=== PATIENT | female | born 1940 | race African-American/Black ===

== ENCOUNTER 2019-07-05 20:33 | Emergency (ER) | payer MEDICARE, SELFPAY ==
--- NOTE | ~2019-07-05 | XR_ITS ---
EXAMINATION: XR chest 2V DATE: 07/05/2019 21:42 INDICATION: Shortness of breath, hypertension TECHNIQUE: PA and lateral views of the chest are obtained. COMPARISON: None available FINDINGS: The lungs are free of acute opacities. There is no pleural effusion or pneumothorax. The ca rdiomediastinal silhouette is normal. There is moderate thoracic spondylosis. IMPRESSION: 1. No acute cardiopulmonary abnormality. Reviewed, dictated and finalized at location A. 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
[2019-07-05 20:38] VITALS: BP 198/73; PULSE 81; RESP 20; TEMP 36.2; O2SAT 100
--- NOTE | 2019-07-05 20:54 | ED.SOB ---
HPI - SOB/Dyspnea General Chief Complaint: Shortness of Breath/Dyspnea Stated Complaint: SOB Time Seen by Provider: 07/05/19 20:54 Source: patient Mode of arrival: ambulatory Limitations: no limitations History of Present Illness HPI Narrative: An 78 y/o female presents to the ED with c/o SOB this evening. Pt states that she went out to dinner with friends but did not do any activity out of the ordinary. Pt notes that her BLE edema is worse than normal today. Pt is on medication for her PMHx of HTN but has not taken this yet today because she only takes it before she goes to bed. Pt lives alone at home and is able to ambulate unassisted. She reports lightheadedness, but denies a cough, CP, chest pressure, rhinorrhea, sore throat, dizziness, a fever, smoking, and alcohol use. Onset (ago): hour(s) Review of Systems Review of Systems: All systems reviewed & are unremarkable except as noted in HPI and below Constitutional: Constitutional: Denies fever(s) Comments: Reports: lightheadedness ENT: Denies sore throat Comments: Denies: rhinorrhea Cardiovascular: Cardiovascular: Denies chest pain Comments: Denies: chest pressure Respiratory: Respiratory: Denies cough and Reports dyspnea Musculoskeletal: Comments: Reports: increased BLE edema Neurologic: Denies dizziness PMFSH Past Medical History Medical History (Updated 07/05/19 @ 23:58 by Juju Rodriges MD) HTN (hypertension) Surgical History Surgical History (Updated 07/05/19 @ 21:03 by Yesneia Wen) H/O: hysterectomy Social History Social History (Updated 07/05/19 @ 21:10 by Yesenia Wen) Smoking status: Never smoker Alcohol intake: never Gender identity (if verbalized by the patient): Female Comments PCP: Dr. Solis Exam Narrative: Exam Narrative: GENERAL: Well-appearing, well-nourished, and in no acute distress. HEAD: Normocephalic, atraumatic EYES: PERRLA and EOMI, conjunctiva clear without discharge THROAT:Mucous membranes moist, Oropharynx normal without erythema, exudate, peritonsillar swelling or fluctuance NECK: Supple, without lymphadenopathy or mass RESPIRATORY: No respiratory distress, Airway patent, Respirations non-labored, Clear to auscultation without rales, rhonchi or wheeze HEART: Regular rate and rhythm. No murmur heard. Normal peripheral pulses. ABDOMEN: Soft, nontender, nondistended, normal active bowel sounds. No masses. No rebound or guarding, No organomegaly. EXTREMITIES: No edema, normal strength with full range of motion. SKIN: Warm, dry, normal color without rash NEURO: Alert and oriented x3. CN 2-12 grossly intact. No focal deficits. PSYCH: Normal mood and affect. Course Reevaluation(s) Reevaluation #1: PAtient ambulated with nursing staff. She maintained 98% on room air and she denies having any shortness of breath. Date: 07/05/19 Time: 23:56 Vital Signs Vital signs: Vital Signs Temperature 97.1 F L 07/05/19 20:38 Pulse Rate 81 07/05/19 20:38 Respiratory Rate 20 07/05/19 20:38 Blood Pressure 198/73 H 07/05/19 20:38 Pulse Oximetry 100 07/05/19 20:38 Temperature 97.1 F L 07/05/19 20:38 Pulse Rate 61 07/05/19 23:31 Respiratory Rate 14 07/05/19 23:31 Blood Pressure 165/80 H 07/05/19 23:31 Pulse Oximetry 100 07/05/19 23:31 MDM - SOB/Dyspnea Differential Diagnosis Differential diagnosis: Likely acute exacerbation of chronic obstructive airways disease, congestive heart failure, community acquired pneumonia, asthma with exacerbation and pulmonary embolism Lab Data Attestation: I reviewed the patient's lab results. Result diagrams: 07/05/19 22:11 07/05/19 22:11 Labs: Lab Results 07/05/19 07/05/19 07/05/19 Range/Units 22:11 22:11 22:11 WBC 6.3 (4.5-10.0) K/mm3 RBC 4.39 (4.2-5.4) M/mm3 Hgb 11.9 L (12.0-15.0) g/dL Hct 39.7 (37.0-47.0) % MCV 90.4 (80-100) fl MCH 27.1 (26-34) pg MCHC 30.0 L (32-36) g/dl RD
--- NOTE | 2019-07-05 20:55 | PC.NURSE ---
pt denies having any hx of copd, chf. pt states she has had a recent nonproductive cough. denies any congestion.
[2019-07-05 20:59] VITALS: BP 163/80; PULSE 70; RESP 16; O2SAT 100
--- NOTE | 2019-07-05 21:19 | ECG_ITS ---
Measurements Intervals [place] Rate: 75 P: 11 [place]: 164 QRS: -11 QRSD: 90 T: 4 QT: 387 QTc: 434 Interpretive Statements SINUS RHYTHM VOLTAGE CRITERIA FOR LVH CONSIDER INFERIOR INFARCT, AGE INDETERMINATE ABNORMAL ECG Electronically Signed On 07-06-2019 8:22:22 BENCH HAND by Tree Little D.O.
--- NOTE | 2019-07-05 21:35 | PC.NURSE ---
unable to get blood from pt at this time. pt going to xray. this rn will attempt again when she returns. notifed.
[2019-07-05 22:17] LABS: Basophils Percent Auto 0.5 % (0.2-1.2); Eosinophils Absolute Auto 0.1 K/mm3 (0-0.3); Eosinophils Percent Auto 2.2 % (0-4.4); Hematocrit 39.7 % (37.0-47.0); Hemoglobin 11.9 g/dL (12.0-15.0); Immature Granulocyte Absolute 0.02 K/mm3 (0.00-0.031); Immature Granulocyte Percent A 0.3 % (0-0.5); Lymphocytes Absolute Auto 2.65 K/mm3 (0.9-3.2); Lymphocytes Percent Auto 41.8 % (18.3-44.2); Mean Corpuscular Hemoglobin 27.1 pg (26-34); Mean Corpuscular Volume 90.4 fl (80-100); Mean Platelet Volume 10.1 fl (7.4-10.4); Monocytes Absolute Auto 0.5 K/mm3 (0.1-0.6); Monocytes Percent Auto 7.6 % (2.6-8.5); Neutrophils Percent Auto 47.6 % (45.5-73.1); Platelet Count Result 204 k/mm3 (150-375); Red Blood Count 4.39 M/mm3 (4.2-5.4); Red Cell Distribution Width 13.4 % (11.5-14.5); White Blood Count 6.3 K/mm3 (4.5-10.0)
[2019-07-05 22:20] VITALS: BP 155/111; PULSE 77; RESP 16; O2SAT 99
[2019-07-05 22:27] LABS: Prothrombin Time 12.8 Seconds (11.1-14.7)
[2019-07-05 22:28] LABS: Blood Urea Nitrogen 21 mg/dL (7-17); Calcium 8.7 mg/dL (8.4-10.2); Carbon Dioxide 23 mmol/L (22-30); Chloride 102 mmol/L (98-107); Estimated Glomerular Filt Rate 58; Glucose 107 mg/dL (65-105); Partial Thromboplastin Time 31.2 SECONDS (22.3-36.8); Potassium 4.2 mmol/L (3.4-5.0); Sodium 140 mmol/L (137-145)
[2019-07-05 22:40] LABS: NT Pro B Type Natriuretic Pept 94 PG/ML (5-100); Troponin I < 0.012 ng/mL (0.000-0.034)
[2019-07-05 23:12] VITALS: BP 156/82; PULSE 64; RESP 13; O2SAT 100
[2019-07-05 23:31] VITALS: BP 165/80; PULSE 61; RESP 14; O2SAT 100
--- NOTE | 2019-07-05 23:44 | PC.NURSE ---
pt ambulated w/ pulse ox per md verbal orders. pt os saturation stayed 97%-99% w/ no complaints of sob. md notified.
[2019-07-06 00:14] VITALS: BP 165/80; PULSE 59; RESP 16; TEMP 37.2; O2SAT 100
== END 2019-07-06 00:17 | disposition home or self-care (01) ==
PROVIDERS: Emergency Provider General Practice; PCP Internal Medicine
DX: R06.00 Dyspnea, unspecified (principal); I10 Essential (primary) hypertension; R94.31 Abnormal electrocardiogram [ECG] [EKG]
CPT/HCPCS: 36415; 71046; 80048; 83880; 84484; 85025; 85610; 85730; 93005; 99284

== ENCOUNTER 2019-09-26 18:21 | Inpatient (IN) | payer MEDICARE, SELFPAY ==
[2019-09-26] VITALS (9 sets, daily range): BP systolic 97–115; BP diastolic 60–84; PULSE 72–95; RESP 16–26; TEMP 36.6–39.3; O2SAT 94–100; BMI 25.0
--- NOTE | ~2019-09-26 | XR_ITS ---
EXAMINATION: XR chest 2V EXAM DATE: 09/26/2019 19:13 INDICATION: Fever, weakness. TECHNIQUE: Frontal and lateral projections of the chest obtained and reviewed. Comparison is made to prior examination from 07/05/2019. FINDINGS: Small amount of increased retrocardiac density, appears to be new compared to prior study, possible developing pneumonia. Atelectasis also possible. The lungs are otherwise clear. There are no pleural effusions. The cardiomediastinal silhouette is within normal limits. There is no pneumot horax suspected. The bones and soft tissues are unremarkable. IMPRESSION: Left basilar subsegmental pneumonia versus atelectasis. Reviewed, dictated and finalized at location A.
--- NOTE | ~2019-09-26 | CT_ITS ---
EXAMINATION: CT abdomen pelvis wo con EXAM DATE: 09/26/2019 20:40 INDICATION: Diarrhea, fever. TECHNIQUE: Spiral CT of the abdomen and pelvis was performed without contrast. Axial, coronal and s agittal images were reviewed. The dose-length product (DLP) for this examination was 319.21 mGy-cm. The exposure was tailored according to patient size (auto mA exposure control), and iterative recons truction (ASIR) was used as additional dose reduction technique. There is no prior study for compari son. Correlation was made with chest x-ray earlier same date. FINDINGS: There is left lower lobe groundglass airspace disease, and somewhat dependent position. Thi s is partly atelectasis. Superimposed infection also possible. There is right lower lobe subsegmental atelectasis. There is a hypodensity in the left liver lobe lateral segment measuring 1 cm consistent with a cyst. The spleen, pancreas, and adrenal glands are unremarkable. Gallbladder is unremarkable. No biliary obstruction. There is no nephrolithiasis or hydronephrosis. There is a left renal cyst measuring 3. 8 cm. The uterus is not identified and has likely been surgically resected. The bladder is unremarka ble. There is no retroperitoneal or pelvic lymphadenopathy. The appendix is not positively visualized. There is no pericecal inflammatory change to suggest appe ndicitis. The stomach and small bowel are unremarkable. There is expected amount of colonic stool. No free intraperitoneal gas. The heart is normal in size. There are no pericardial or pleural e ffusions. There are no osteoblastic or osteolytic lesions identified. There is mild lumbar dextros coliosis. IMPRESSION: 1. Bilateral dependent subsegmental atelectasis. Additional left lower lobe groundglass density, cou ld be atelectasis and/or infection. 2. No acute intra-abdominal findings. Reviewed, dictated and finalized at location G. IMPRESSION: 1. Bilateral dependent subsegmental atelectasis. Additional left lower lobe gr oundglass density, could be atelectasis and/or infection. 2. No acute intra-abdominal findings.
--- NOTE | 2019-09-26 18:30 | ECG_ITS ---
Measurements Intervals [place] Rate: 86 P: 12 [place]: 148 QRS: 9 QRSD: 86 T: 23 QT: 341 QTc: 409 Interpretive Statements SINUS RHYTHM NORMAL ECG Electronically Signed On 09-27-2019 7:05:15 CDT by Tree Little D.O.
[2019-09-26 18:43] LABS: Basophils Percent Auto 0.2 % (0.2-1.2); Hematocrit 41.4 % (37.0-47.0); Hemoglobin 12.9 g/dL (12.0-15.0); Immature Granulocyte Absolute 0.08 K/mm3 (0.00-0.031); Immature Granulocyte Percent A 0.8 % (0-0.5); Lymphocytes Absolute Auto 1.67 K/mm3 (0.9-3.2); Lymphocytes Percent Auto 17.1 % (18.3-44.2); Mean Corpuscular HGB Conc 31.2 g/dl (32-36); Mean Corpuscular Hemoglobin 27.4 pg (26-34); Mean Corpuscular Volume 88.1 fl (80-100); Mean Platelet Volume 10.9 fl (7.4-10.4); Monocytes Absolute Auto 0.6 K/mm3 (0.1-0.6); Neutrophils Absolute Auto 7.4 K/mm3 (1.3-6.7); Neutrophils Percent Auto 75.9 % (45.5-73.1); Platelet Count Result 219 k/mm3 (150-375); White Blood Count 9.7 K/mm3 (4.5-10.0)
[2019-09-26 18:59] LABS: Lactic Acid Reflex 1.4 mmol/L (0.7-2.1)
[2019-09-26 19:08] LABS: Alanine Aminotransferase 26 U/L (4-35); Albumin Level 4.5 g/dL (3.5-5.1); Alkaline Phosphatase 64 U/L (38-126); Aspartate Amino Transferase 87 U/L (14-36); Bilirubin,Total 1.6 mg/dL (0.2-1.3); Blood Urea Nitrogen 40 mg/dL (7-17); Calcium 8.2 mg/dL (8.4-10.2); Carbon Dioxide 22 mmol/L (22-30); Chloride 103 mmol/L (98-107); Estimated CRCL calculation 20 ml/min; Estimated Glomerular Filt Rate 44; Glucose 121 mg/dL (65-105); Lipase 434 U/L (23-300); Potassium 4.8 mmol/L (3.4-5.0); Sodium 136 mmol/L (137-145)
[2019-09-26 19:08] LABS: Add Urine Microscopic? YES; Appearance Urine Clear (Clear); Bilirubin Urine Negative (Negative); Blood Urine 1+ (Negative); Color Urine Yellow (Yellow); Glucose Urine UA Negative (Negative); Ketones Urine Trace mg/dL (Negative); Leukocyte Esterase Ur Negative LEU/UL (Negative); Mucus Urine Rare /lpf; Nitrate Urine Negative (Negative); Protein Urine 2+ mg/dL (Negative); RBC Urine 0-2 /hpf (0-2); Specific Grav Ur 1.024 (1.001-1.035); Squamous Epithelial Cell Urine Rare /hpf (Few); WBC Urine 0-3 /hpf
[2019-09-26 19:11] LABS: Troponin I 0.022 ng/mL (0.000-0.034)
[2019-09-26 19:19] LABS: INR 1.1; Prothrombin Time 13.5 Seconds (11.1-14.7)
[2019-09-26 19:20] LABS: Partial Thromboplastin Time 30.5 SECONDS (22.3-36.8)
--- NOTE | 2019-09-26 19:30 | ED.FEVER ---
HPI - Fever General Chief Complaint: Fever Stated Complaint: Diarrhea & fever Time Seen by Provider: 09/26/19 19:03 Source: patient Mode of arrival: EMS History of Present Illness HPI Narrative: This patient is an 79 yo female who presents from home for evaluation of diarrhea and fever. Patient states she has had nonbloody diarrhea for 1 week. She states she believes her diarrhea stopped today. Her family called EMS today because she was running a fever, but she has no complaints. She denies having associated abdominal pain, nausea, vomiting or cough. EMS reported weakness although patient denies. She was tested for COVID 2 weeks ago . MD elicited complaint: fever Related Data Home Medications Medication Instructions Recorded Confirmed diphenoxylate-atropine 1 tablet PO PRN PRN 09/26/19 09/26/19 ergocalciferol (vitamin D2) 1,250 mcg PO DAILY 09/26/19 09/26/19 [Vitamin D2] valsartan-hydrochlorothiazide 1 tablet PO DAILY 09/26/19 09/26/19 Allergies Allergy/AdvReac Type Severity Reaction Status Date / Time Penicillins Allergy Hives Verified 09/26/19 19:34 Review of Systems Review of Systems: All systems reviewed & are unremarkable except as noted in HPI and below Constitutional: Constitutional: Denies fatigue and Reports fever(s) ENT: Denies dizziness and Denies sore throat Cardiovascular: Cardiovascular: Denies chest pain Respiratory: Respiratory: Denies cough and Denies dyspnea Gastrointestinal: Gastrointestinal: Denies abdominal pain, Reports diarrhea, Denies nausea and Denies vomiting PMFSH Past Medical History Medical History HTN (hypertension) Surgical History Surgical History H/O: hysterectomy Social History Social History Smoking status: Never smoker Alcohol intake: never Substance use: never Gender identity (if verbalized by the patient): Female Spiritual care concerns: No Agree to blood products: Yes Exam Narrative: Exam Narrative: GENERAL: , well-nourished, and in no acute distress. Patient laying in bed sleeping HEAD: Normocephalic, atraumatic EYES: PERRLA and EOMI, conjunctiva clear without discharge EARS: TM's clear bilaterally without erythema or dullness NOSE: Nares clear, no rhinorrhea or epistaxis THROAT:Mucous membranes moist, Oropharynx normal without erythema, exudate, peritonsillar swelling or fluctuance NECK: Supple, without lymphadenopathy or mass RESPIRATORY: No respiratory distress, Airway patent, Respirations non-labored, Clear to auscultation without rales, rhonchi or wheeze HEART: Regular rate and rhythm. No murmur heard. Normal peripheral pulses. ABDOMEN: Soft, nontender, nondistended, normal active bowel sounds. No masses. No rebound or guarding, No organomegaly. with abdominal scar EXTREMITIES: No edema, normal strength with full range of motion. SKIN: Warm, dry, normal color without rash NEURO: oriented to person, age and place. CN 2-12 grossly intact. No focal deficits. PSYCH: Normal mood and affect. Course Course Emergency Course: Patient presented with diarrhea and a fever of 102.8. On labs she appears dehydrated with elevated BUN to 40 and BE -4. I suspect she may have covid. I will admit for hydration, antibiotics and observation. Consultations Consultation #1: I have discussed case with Dr. Tavarez who accepts patient for observation to the medical floor. Date: 09/26/19 Time: 21:45 Vital Signs Vital signs: Vital Signs Temperature 102.8 F H 09/26/19 18:20 Pulse Rate 95 09/26/19 18:20 Respiratory Rate 26 H 09/26/19 18:20 Blood Pressure 101/84 09/26/19 18:20 Pulse Oximetry 95 09/26/19 18:20 Temperature 97.5 F L 09/27/19 02:00 Pulse Rate 72 09/27/19 02:00 Respiratory Rate 16 09/27/19 02:00 Blood Pressure 122/74 09/27/19 02:00 Pulse
[2019-09-26] MEDS: LACTATED RINGERS 1,000 ML 999 ML IV CONT ×2 (19:39→20:03)
[2019-09-26 19:51] LABS: Alveolar/Arterial O2 Gradient 52.1 mmHg; Base Excess ABG -4.2 mEq/l (+/-2.0); Carboxyhemoglobin 0.6 % THb (0-2.0); Fractional Inspired Oxygen 21 %; HCO3 ABG 17.6 mEq/l (22.0-26.0); Methemoglobin ABG 0.3 %THb (0-1.5); Oxygen Content ABG 16.4 %vol (16.0-22.0); Oxygen Saturation ABG 95.3 % (95.0-100.0); Oxyhemoglobin 93.2 % THb (90.0-100.0); PO2 ABG 68.9 mmHg (80.0-100.0); PO2 FiO2 Ratio Arterial Blood 3.28 %; Reduced Hemoglobin 5.9 %THb (0-5.0); Total Hemoglobin 12.5 g/dL (12.0-18.0); pH ABG 7.482 (7.350-7.450)
[2019-09-26 19:52] LABS: Site Drawn RIGHT BRACHIAL
[2019-09-26 19:53] LABS: Device ROOM AIR
[2019-09-26 19:58] LABS: CRP 17.2 mg/dL (<1.0)
--- NOTE | 2019-09-26 20:17 | PC.NURSE ---
RHODA alexandered administration of Rocephin.
[2019-09-26 21:08] LABS: Lactate Dehydrogenase 1122 U/L (313-618)
--- NOTE | 2019-09-26 22:48 | ADMGEN ---
This patient, Celsa Hinton, was admitted to [facility] Surg Room 332-01. Patient/family oriented to hospital policies and general routines including ID bracelet, bed and alarms, visiting hours, pain management, procedures, bathroom and other care routines, personal items, smoking policy, room service/diet, and visiting hours. Valuables list has been completed. Information on how to activate the Rapid Response Team has been discussed. Patient/Family are encouraged to report perceived risks to care and to ask questions if they do not understand what they are told or what they should do.
[2019-09-26] MEDS: LACTATED RINGERS 1,000 ML 125 ML IV CONT (23:14)
[2019-09-27] VITALS (9 sets, daily range): BP systolic 112–146; BP diastolic 58–74; PULSE 72–96; RESP 16–20; TEMP 36.4–39.1; O2SAT 92–98
--- NOTE | 2019-09-27 00:15 | PM.IMHP ---
H&P: HPI History of Present Illness Chief complaint: sepsis, pneumonia, dehydration Narrative: This is an 79 year old female with known history of chronic HTN who presented to the hospital [facility] with a complaint of ongoing diarrhea and fever for the past week duration. The patient reports generalized weakness. Her family decided to call EMS secondary to the patient's fever today. The patient denies any cough or shortness of breath. She also denies any abdominal pain, dysuria, hematuria, headache, blurry vision, double vision, nausea, vomiting or rectal bleeding. The patient reports that her granddaughter has Covid-19 although she has not had any contact with her recently. The patient was evaluated in the ER [facility] and found to be in acute renal failure w/ Cr of 1.4. She was also swabbed for COVID-19 virus and placed on droplet isolation. No other complaints. Review of Systems Review of Systems: All systems reviewed & are unremarkable except as noted in HPI and below PMFSH Past Medical History Medical History HTN (hypertension) Surgical History Surgical History H/O: hysterectomy Social History Social History Smoking status: Never smoker Alcohol intake: never Substance use: never Gender identity (if verbalized by the patient): Female Spiritual care concerns: No Agree to blood products: Yes Comments Family medical history is unknown to the patient. Meds Home Medications and Allergies Home Medications Medication Instructions Recorded Confirmed Type diphenoxylate-atropine 1 tablet PO PRN PRN 09/26/19 09/26/19 History ergocalciferol (vitamin D2) 1,250 mcg PO DAILY 09/26/19 09/26/19 History [Vitamin D2] valsartan-hydrochlorothiazide 1 tablet PO DAILY 09/26/19 09/26/19 History Allergies Allergy/AdvReac Type Severity Reaction Status Date / Time Penicillins Allergy Hives Verified 09/26/19 19:34 Vital Signs Vital Signs - 24 hr 09/26/19 18:20 09/26/19 19:24 09/26/19 19:57 Temperature 39.3 C H 37.9 C H Pulse Rate 95 75 Respiratory Rate 26 H 19 21 H Blood Pressure 101/84 97/60 L Pulse Oximetry 95 98 94 09/26/19 20:09 09/26/19 20:38 09/26/19 21:02 Temperature 37.9 C H 37.2 C Pulse Rate 72 78 Respiratory Rate 20 17 Blood Pressure 115/67 113/71 Pulse Oximetry 98 100 09/26/19 22:04 09/26/19 22:20 09/26/19 23:45 Temperature 36.6 C Pulse Rate 73 74 Respiratory Rate 17 16 Blood Pressure 115/67 115/66 Pulse Oximetry 100 96 100 Exam Const: General: cooperative, no acute distress, alert and awake Nutritional Appearance: well nourished Orientation/consciousness: oriented to person HENMT: Head: normal to inspection General nose exam: Normal external nose present Face and sinus: normal facial exam Mouth: Yes Normal oral and palatal mucosa present and Yes oropharynx normal Eyes: Pupils: Equal, round and reactive pupils present EOM: EOMs intact bilaterally Neck: Neck: supple and no JVD Thyroid: thyroid normal Lymphatic: lymphadenopathy not noted Resp: Effort & Inspection: tachypneic Auscultation: clear to auscultation bilaterally Cardio: Rate: regular rate Rhythm: regular rhythm Heart sounds: no murmurs GI: Inspection: normal to inspection Auscultation: normal bowel sounds Skin: General skin exam: normal color and no rashes or lesions noted Neuro: General: oriented to person Cranial nerves: Yes CN's II-XII intact bilaterally and Yes Equal, round and reactive pupils present Speech: normal speech Motor exam (neuro): 5/5 motor strength present throughout Sensory Exam: normal sensation Extrem: General: normal to inspection and no edema Psych: Mental Status: mental status grossly normal Affect: normal affect H&P: Results Labs Labs: Short CBC 09/26/19 Range/Units 18:33 WBC 9.7 (
[2019-09-27] MEDS: LACTATED RINGERS 1,000 ML 125 ML IV CONT (08:43)
[2019-09-27 08:52] LABS: Basophils Percent Auto 0.2 % (0.2-1.2); Eosinophils Percent Auto 0.1 % (0-4.4); Hematocrit 34.4 % (37.0-47.0); Hemoglobin 10.6 g/dL (12.0-15.0); Immature Granulocyte Absolute 0.09 K/mm3 (0.00-0.031); Lymphocytes Absolute Auto 1.33 K/mm3 (0.9-3.2); Lymphocytes Percent Auto 15.1 % (18.3-44.2); Mean Corpuscular HGB Conc 30.8 g/dl (32-36); Mean Corpuscular Hemoglobin 27.3 pg (26-34); Mean Corpuscular Volume 88.7 fl (80-100); Mean Platelet Volume 11.2 fl (7.4-10.4); Monocytes Absolute Auto 0.3 K/mm3 (0.1-0.6); Monocytes Percent Auto 3.8 % (2.6-8.5); Neutrophils Percent Auto 79.8 % (45.5-73.1); Platelet Count Result 194 k/mm3 (150-375); Red Blood Count 3.88 M/mm3 (4.2-5.4); White Blood Count 8.8 K/mm3 (4.5-10.0)
[2019-09-27 09:06] LABS: Alanine Aminotransferase 20 U/L (4-35); Albumin Level 3.5 g/dL (3.5-5.1); Alkaline Phosphatase 49 U/L (38-126); Aspartate Amino Transferase 60 U/L (14-36); Bilirubin,Total 1.1 mg/dL (0.2-1.3); Blood Urea Nitrogen 23 mg/dL (7-17); Calcium 7.7 mg/dL (8.4-10.2); Carbon Dioxide 25 mmol/L (22-30); Chloride 106 mmol/L (98-107); Estimated CRCL calculation 28 ml/min; Estimated Glomerular Filt Rate > 60; Glucose 97 mg/dL (65-105); Potassium 4.3 mmol/L (3.4-5.0); Sodium 137 mmol/L (137-145)
[2019-09-27 13:21] LABS: SARS-CoV-2 RNA PCR Negative
[2019-09-27] MEDS: ACETAMINOPHEN 325 MG TABLET 650 MG PO (13:50)
--- NOTE | 2019-09-27 15:49 | PM.IMPN ---
Progress Note: A&P Assessment and Plan (1) Febrile illness, acute: Code(s): R50.9 - Fever, unspecified Status: Acute Assessment and Plan: Likely acute viral diarrheal illness vs. COVID-19 viral infection; COVID testing negative today, however patient has had recent contact with a family member positive with COVID-19. Granddaughter, Vianney, noted that patient had been tested 3 weeks ago at an Urgent Care and that was negative as well. Although acute phase reactants, imaging, and history still leaves the possibility of a COVID infection. Patient is feeling better today, noting diarrhea has improved. Fevers are still present, but otherwise VSS Continue supportive care and IV fluid therapy; lower rate to 75 ml/hr Monitor closely Stop antibiotics as this is felt to be viral in nature (2) Acute renal failure: Qualifiers: Acute renal failure type: unspecified Qualified Code(s): N17.9 - Acute kidney failure, unspecified Code(s): N17.9 - Acute kidney failure, unspecified Status: Acute Assessment and Plan: Cr is 1.00 today; improved. Appears to be secondary to poor PO intake of fluids. \ Continue light IV fluid at 75 mL/hr. Monitor renal function and urine output. Renally dose medications. Avoid nephrotoxic agents. Trend BMP tomorrow (3) Acute dehydration: Code(s): E86.0 - Dehydration Status: Acute Assessment and Plan: Likely due to poor PO intake and diarrhea Continue light IV hydration. Monitor vital signs and urine output. (4) Suspected 2019-nCoV infection: Code(s): Z20.828 - Contact with and (suspected) exposure to other viral communicable diseases Status: Acute Assessment and Plan: COVID-19 results negative although still suspicious for COVID infection given history, labs, and imaging. Continue droplet isolation. Continue supportive care. (5) Sepsis: Qualifiers: Sepsis acute organ dysfunction status: without acute organ dysfunction Sepsis type: sepsis due to unspecified organism Qualified Code(s): A41.9 - Sepsis, unspecified organism Code(s): A41.9 - Sepsis, unspecified organism Status: Acute Assessment and Plan: w/ fever and tachypnea; Fevers present today, but tachypnea seems to have resolved. Lactic acid WNL Monitor vital signs closely. Continue treatment for what appears to be a viral illness. (6) HTN (hypertension): Qualifiers: Hypertension type: unspecified Qualified Code(s): I10 - Essential (primary) hypertension Code(s): I10 - Essential (primary) hypertension Status: Chronic Assessment and Plan: BP 110s sys Monitor blood pressure. Hold HCTZ due to DEYA; likely resume tomorrow PRN hydralazine w/ parameters ordered. Subjective Date/time seen: 09/27/19 15:49 Interval history: Patient is a 79 yo F with history of chronic HTN who is here for evaluation of diarrhea, fevers, and generalized weakness and suspected COVID infection. Patient is doing okay today; she is tired and has some fevers, but otherwise feeling somewhat better. She states she is tolerating PO okay. Diarrhea has improved. Otherwise has no other complaints. Denies cp/palpitations, sob/cough, n/v, abd pain, melena, BRBPR, dysuria, hematuria, cloudy urine, calf pain/swelling. Review of Systems Review of Systems: All systems reviewed & are unremarkable except as noted in HPI and below Exam Narrative: Exam Narrative: Patient sitting upright at time of visit; nursing in room Const: General: cooperative, no acute distress, alert and awake Nutritional Appearance: well nourished Orientation/consciousness: oriented to person and oriented to place HENMT: Head: gurvinder
[2019-09-28] VITALS (8 sets, daily range): BP systolic 105–134; BP diastolic 62–74; PULSE 63–89; RESP 16–18; TEMP 36.2–38.2; O2SAT 94–98
[2019-09-28] MEDS: LACTATED RINGERS 1,000 ML 75 ML IV CONT (01:12)
[2019-09-28 06:34] LABS: Hematocrit 31.3 % (37.0-47.0); Hemoglobin 9.9 g/dL (12.0-15.0); Mean Corpuscular HGB Conc 31.6 g/dl (32-36); Mean Corpuscular Hemoglobin 27.6 pg (26-34); Mean Corpuscular Volume 87.2 fl (80-100); Mean Platelet Volume 10.8 fl (7.4-10.4); Platelet Count Result 217 k/mm3 (150-375); Red Blood Count 3.59 M/mm3 (4.2-5.4); White Blood Count 10.6 K/mm3 (4.5-10.0)
[2019-09-28] MEDS: ACETAMINOPHEN 325 MG TABLET 650 MG PO (06:39)
[2019-09-28 06:57] LABS: Alanine Aminotransferase 21 U/L (4-35); Albumin Level 3.3 g/dL (3.5-5.1); Alkaline Phosphatase 50 U/L (38-126); Aspartate Amino Transferase 65 U/L (14-36); Bilirubin,Total 1.1 mg/dL (0.2-1.3); Blood Urea Nitrogen 14 mg/dL (7-17); Calcium 7.5 mg/dL (8.4-10.2); Carbon Dioxide 22 mmol/L (22-30); Chloride 106 mmol/L (98-107); Estimated CRCL calculation 28 ml/min; Estimated Glomerular Filt Rate > 60; Glucose 86 mg/dL (65-105); Lactate Dehydrogenase 1360 U/L (313-618); Sodium 135 mmol/L (137-145)
[2019-09-28 07:13] LABS: CRP 19.7 mg/dL (<1.0)
--- NOTE | 2019-09-28 16:36 | PC.NURSE ---
We have been receiving multiple calls from three different family members, Vianney, Willow, and Dalila. I have instructed the family to designate one person to call for updates. I asked the patient while Dale SILVA was in the room and the patient stated that she would like Vianney to be the one to call for information and updates. Dalila and Willow are still calling repeatedly, family has been asked once again to please only have one person call.
--- NOTE | 2019-09-28 16:46 | PM.IMPN ---
Progress Note: A&P Assessment and Plan (1) Febrile illness, acute: Code(s): R50.9 - Fever, unspecified Status: Acute Assessment and Plan: Likely acute viral diarrheal illness vs. COVID-19 viral infection; COVID testing negative during stay, however patient has had recent contact with a family member positive with COVID-19. Granddaughter, Vianney, noted that patient had been tested 3 weeks ago at an Urgent Care and that was negative as well. Although acute phase reactants, imaging, and history still leaves the possibility of a COVID infection. Patient clinically improving, however acute phase reactants increased overnight, other than ferritin improving. 100.7 temp this morning, but has been afebrile since. VSS. WBC up to 10.6k Continue supportive care IVF d/c Monitor closely NO antibiotics as this is felt to be viral in nature (2) Acute renal failure: Qualifiers: Acute renal failure type: unspecified Qualified Code(s): N17.9 - Acute kidney failure, unspecified Code(s): N17.9 - Acute kidney failure, unspecified Status: Acute Assessment and Plan: Cr is 1.00 today; stable. Appears to be secondary to poor PO intake of fluids. IVF d/c Monitor renal function and urine output. Renally dose medications. Avoid nephrotoxic agents. Trend BMP tomorrow (3) Acute dehydration: Code(s): E86.0 - Dehydration Status: Acute Assessment and Plan: Likely due to poor PO intake and diarrhea IVF d/c Encourage PO Monitor vital signs and urine output. (4) Suspected 2019-nCoV infection: Code(s): Z20.828 - Contact with and (suspected) exposure to other viral communicable diseases Status: Acute Assessment and Plan: COVID-19 results negative although still suspicious for COVID infection given history, labs, and imaging. Continue droplet isolation. Continue supportive care. (5) Sepsis: Qualifiers: Sepsis acute organ dysfunction status: without acute organ dysfunction Sepsis type: sepsis due to unspecified organism Qualified Code(s): A41.9 - Sepsis, unspecified organism Code(s): A41.9 - Sepsis, unspecified organism Status: Acute Assessment and Plan: w/ fever and tachypnea; Fevers present today, but tachypnea seems to have resolved. Lactic acid WNL Monitor vital signs closely. Continue treatment for what appears to be a viral illness. (6) HTN (hypertension): Qualifiers: Hypertension type: unspecified Qualified Code(s): I10 - Essential (primary) hypertension Code(s): I10 - Essential (primary) hypertension Status: Chronic Assessment and Plan: BP 120s sys Monitor blood pressure. Hold HCTZ due to DEYA; likely resume at discharge PRN hydralazine w/ parameters ordered. Subjective Date/time seen: 09/28/19 16:46 Interval history: Patient is a 79 yo F with history of chronic HTN who is here for evaluation of diarrhea, fevers, and generalized weakness and suspected COVID infection. Patient is better today today; she does not have any complaints for me today other than being cold in the room. Diarrhea has improved again today. She is A&Ox4 for me today Otherwise has no other complaints. Denies subjective f/c/s, cp/palpitations, sob/cough, n/v/c/d, abd pain, melena, BRBPR, dysuria, hematuria, cloudy urine, calf pain/swelling. Review of Systems Review of Systems: All systems reviewed & are unremarkable except as noted in HPI and below Exam Narrative: Exam Narrative: Patient sitting upright at time of visit Const: General: cooperative, comfortable, no acute distress, well developed, alert and awake Nutritional Appearance: well nourished Orientation/consciousness: jef
[2019-09-29 02:00] VITALS: BP 122/69; PULSE 74; RESP 18; TEMP 36.8; O2SAT 99
[2019-09-29 05:45] VITALS: BP 142/75; PULSE 88; RESP 16; TEMP 36.7; O2SAT 96
[2019-09-29 06:22] LABS: Basophils Percent Auto 0.3 % (0.2-1.2); Eosinophils Percent Auto 0.5 % (0-4.4); Hematocrit 31.6 % (37.0-47.0); Hemoglobin 9.8 g/dL (12.0-15.0); Immature Granulocyte Absolute 0.11 K/mm3 (0.00-0.031); Immature Granulocyte Percent A 1.4 % (0-0.5); Lymphocytes Absolute Auto 1.39 K/mm3 (0.9-3.2); Lymphocytes Percent Auto 18.1 % (18.3-44.2); Mean Corpuscular Hemoglobin 26.9 pg (26-34); Mean Corpuscular Volume 86.8 fl (80-100); Mean Platelet Volume 10.5 fl (7.4-10.4); Monocytes Absolute Auto 0.6 K/mm3 (0.1-0.6); Monocytes Percent Auto 8.3 % (2.6-8.5); Neutrophils Absolute Auto 5.5 K/mm3 (1.3-6.7); Neutrophils Percent Auto 71.4 % (45.5-73.1); Platelet Count Result 236 k/mm3 (150-375); Red Blood Count 3.64 M/mm3 (4.2-5.4); Red Cell Distribution Width 12.9 % (11.5-14.5); White Blood Count 7.7 K/mm3 (4.5-10.0)
[2019-09-29 06:52] LABS: Alanine Aminotransferase 21 U/L (4-35); Albumin Level 3.3 g/dL (3.5-5.1); Alkaline Phosphatase 53 U/L (38-126); Aspartate Amino Transferase 63 U/L (14-36); Bilirubin,Total 1.1 mg/dL (0.2-1.3); Blood Urea Nitrogen 13 mg/dL (7-17); Calcium 7.7 mg/dL (8.4-10.2); Carbon Dioxide 20 mmol/L (22-30); Chloride 103 mmol/L (98-107); Estimated CRCL calculation 31 ml/min; Estimated Glomerular Filt Rate > 60; Glucose 86 mg/dL (65-105); Lactate Dehydrogenase 1380 U/L (313-618); Magnesium 1.9 mg/dL (1.6-2.3); Potassium 3.7 mmol/L (3.4-5.0); Sodium 133 mmol/L (137-145)
--- NOTE | 2019-09-29 08:40 | PM.DS ---
DS: Diagnosis Admitting Diagnosis Admitting Diagnosis: Fever, unspecified Discharge Diagnosis (1) Febrile illness, acute: Code(s): R50.9 - Fever, unspecified Status: Acute Assessment and Plan: Likely acute viral diarrheal illness vs. COVID-19 viral infection; COVID testing negative during stay, however patient has had recent contact with a family member positive with COVID-19. Granddaughter, Vianney, noted that patient had been tested 3 weeks ago at an Urgent Care and that was negative as well. Although acute phase reactants, imaging, and history still leaves the possibility of a COVID infection. Patient clinically improving again today; acute phase reactants improving or stable. Afebrile since yesterday morning. VSS. WBC down to 7.7k Continue supportive care at discharge Self Isolation recommended and explained to granddaughter, Vianney, and self isolation recommended for whomever will be caring for her as well. CDC packet on COVID provided at discharge No antibiotics as this is felt to be viral in nature (2) Acute renal failure: Qualifiers: Acute renal failure type: unspecified Qualified Code(s): N17.9 - Acute kidney failure, unspecified Code(s): N17.9 - Acute kidney failure, unspecified Status: Resolved Assessment and Plan: Cr is 0.90; resolved. Appears to be secondary to poor PO intake of fluids. IVF d/c (3) Acute dehydration: Code(s): E86.0 - Dehydration Status: Acute Assessment and Plan: Likely due to poor PO intake and diarrhea IVF d/c Encourage PO (4) Suspected 2019-nCoV infection: Code(s): Z20.828 - Contact with and (suspected) exposure to other viral communicable diseases Status: Acute Assessment and Plan: COVID-19 results negative although still suspicious for COVID infection given history, labs, and imaging. Droplet isolation during stay Continue supportive care. See above #1 a/p (5) Sepsis: Qualifiers: Sepsis acute organ dysfunction status: without acute organ dysfunction Sepsis type: sepsis due to unspecified organism Qualified Code(s): A41.9 - Sepsis, unspecified organism Code(s): A41.9 - Sepsis, unspecified organism Status: Resolved Assessment and Plan: w/ fever and tachypnea; afebrile yesterday, tachypnea seems to have resolved. Lactic acid WNL Continue treatment for what appears to be a viral illness. (6) HTN (hypertension): Qualifiers: Hypertension type: unspecified Qualified Code(s): I10 - Essential (primary) hypertension Code(s): I10 - Essential (primary) hypertension Status: Chronic Assessment and Plan: BP 140s sys Resume HCTZ at discharge DS: Summary Hospital Course Reason for hospitalization: Suspected Covid; DEYA, dehydration Hospital Course: Patient is a 79 yo F with history of hypertension who presented to the ER on 09/25 with complaints of ongoing diarrhea and fever for the past week. Patient had contact with known COVID positive family members in the previous several weeks. She also reported generalized weakness. EMS was summoned due to her fevers. She had no cough or shortness of breath and was satting in 90s on RA upon arrival. In the ER she was found to have DEYA with creatinine of 1.40. Please see H&P for further details Presenting VS: Temp Pulse Resp BP Pulse Ox 102.8 F H 95 26 H 101/84 95 09/26/19 18:20 09/26/19 18:20 09/26/19 18:20 09/26/19 18:20 09/26/19 18:20 Presenting Pertinent labs: ABG showed pH of 7.482, pCO2 24, pO2 68.9, HCO3 17.6. Cr 1.40, Ferritin 1310, bilirubin 1.6, AST 87, LDH 1122, CRP 17.2. COVID testing negative. CBC, coags, ABG, chemistry, UA otherwise unremarkable Micro: BC
== END 2019-09-29 11:45 | disposition home or self-care (01) | DRG 872 ==
LOC: ANHED 21:48 → ANH3MEDSUR 21:52
PROVIDERS: Emergency Medicine; Physician Assistant; Admitting Provider Family Medicine; Emergency Provider General Practice; PCP Internal Medicine; Visit Provider Hospitalist
DX: A41.9 Sepsis, unspecified organism (principal); N17.9 Acute kidney failure, unspecified; J98.11 Atelectasis; B34.9 Viral infection, unspecified; R19.7 Diarrhea, unspecified; Z20.828 Contact with and (suspected) exposure to other viral communicable diseases; E86.0 Dehydration; I10 Essential (primary) hypertension; Z90.710 Acquired absence of both cervix and uterus
CPT/HCPCS: 36415; 36600; 51701; 71046; 74176; 80053; 81001; 82375; 82728; 82805; 83050; 83605; 83615; 83690; 83735; 84100; 84484; 85025; 85027; 85610; 85730; 86140; 87040; 87635; 93005; 96361; 96365; 96367; 96375; 99285; A9270; J0131; J0456; J0696; J7120; U0003

== ENCOUNTER 2020-06-27 15:47 | Emergency (ER) | payer MEDICARE, SELFPAY ==
[2020-06-27] VITALS (14 sets, daily range): BP systolic 130–150; BP diastolic 67–88; PULSE 81–102; RESP 17–25; TEMP 37.8; O2SAT 97–98
--- NOTE | ~2020-06-27 | XR_ITS ---
EXAMINATION: XR chest 1V portable 06/27/2020 16:37 INDICATION: Fever after much there are no shot. Decreased appetite. Hypertension. PROCEDURE: AP portable chest COMPARISON: 09/26/2019 FINDINGS: The lungs are clear. The cardiomediastinal silhouette is within normal limits. There are no pleural effusions. There is no pneumothorax suspected. IMPRESSION: 1: NO ACUTE CARDIOPULMONARY DISEASE. Reviewed, dictated and finalized at location A. CLEANING ATTENDANT
--- NOTE | 2020-06-27 16:09 | ED.FEVER ---
HPI - Fever General Chief Complaint: Fever Stated Complaint: fever, weakness, confusion Time Seen by Provider: 06/27/20 15:48 History of Present Illness HPI Narrative: 79 yo female presents form home for a fever. She has reportedly not been feeling well since last night. Started after getting her COVID-19 vaccine yesterday. She has had poor appetite, fatigue, dyspnea, and fever. Temperature at home reported as 103, unclear if this is accurate. She previously had COVID-19 in September. Related Data Home Medications Medication Instructions Recorded Confirmed ergocalciferol (vitamin D2) 1,250 mcg PO DAILY 09/26/19 09/26/19 [Vitamin D2] valsartan-hydrochlorothiazide 1 tablet PO DAILY 09/26/19 09/26/19 Allergies Allergy/AdvReac Type Severity Reaction Status Date / Time Penicillins Allergy Hives Verified 06/27/20 15:58 Review of Systems Review of Systems: All systems reviewed & are unremarkable except as noted in HPI and below Constitutional: Constitutional: Reports fatigue and Reports fever(s) Eyes: Eyes: Reports no additional eye complaints ENT: Denies sore throat Cardiovascular: Cardiovascular: Denies chest pain Respiratory: Respiratory: Denies chest congestion, Denies cough and Reports dyspnea Gastrointestinal: Gastrointestinal: Denies abdominal pain, Denies diarrhea, Reports nausea and Denies vomiting Genitourinary: Genitourinary: Denies hematuria, Denies nocturia and Denies dysuria Musculoskeletal: Musculoskeletal: Denies back pain Neurologic: Reports dizziness, Denies focal weakness, Denies numbness and Reports weakness PMFSH Past Medical History Medical History (Updated 06/28/20 @ 00:00 by Background Daamanda) HTN (hypertension) Surgical History Surgical History H/O: hysterectomy Social History Social History Smoking status: Never smoker Alcohol intake: never Substance use: never Gender identity (if verbalized by the patient): Female Spiritual care concerns: No Agree to blood products: Yes Exam Const: General: healthy appearing, no acute distress and alert Orientation/consciousness: patient oriented x3 HENMT: Head: normal to inspection Resp: Effort & Inspection: normal respiratory effort Auscultation: clear to auscultation bilaterally Cardio: Rate: tachycardic Rhythm: regular rhythm GI: GI Palp: Yes Soft to palpation and No Tenderness to palpation present (GI) Skin: General skin exam: normal color Neuro: General: patient oriented x3, moves all extremities and CN's II-XI intact bilaterally Speech: normal speech Extrem: General: normal to inspection and no edema Course Vital Signs Vital signs: Vital Signs Temperature 37.8 C H 06/27/20 15:59 Pulse Rate 102 H 06/27/20 15:59 Respiratory Rate 20 06/27/20 15:59 Blood Pressure 140/78 06/27/20 15:59 Pulse Oximetry 98 06/27/20 15:59 Temperature 37.8 C H 06/27/20 15:59 Pulse Rate 81 06/27/20 18:21 Respiratory Rate 17 06/27/20 18:21 Blood Pressure 135/71 06/27/20 18:21 Pulse Oximetry 98 06/27/20 18:21 MDM - Fever MDM Narrative Medical decision making narrative: UA consistent with mild infection. Differential Diagnosis Differential diagnosis: Likely viral infection, sepsis and other (Vaccine reaction) Medical Records Attestation: I reviewed the patient's medical records. Lab Data Attestation: I reviewed the patient's lab results. Result diagrams: 06/27/20 16:33 06/27/20 16:33 Labs: Lab Results 06/27/20 06/27/20 06/27/20 Range/Units 16:33 16:33 16:33 WBC 8.2 (4.5-10.0) K/mm3 RBC 4.93 (4.2-5.4) M/mm3 Hgb 13.9 D (12.0-15.0) g/dL Hct 43.7 (37.0-47.0) % MCV 88.6 (80-100) fl MCH 28.2 (26-34) pg MCHC 31.8 L (32-36) g/dl RDW 13.0 (11.5-14.5) % Plt Count 210 (150-375) k/mm3 MPV 10.3 (7.
[2020-06-27 16:45] LABS: Basophils Percent Auto 0.2 % (0.2-1.2); Eosinophils Percent Auto 0.1 % (0-4.4); Hematocrit 43.7 % (37.0-47.0); Hemoglobin 13.9 g/dL (12.0-15.0); Immature Granulocyte Absolute 0.02 K/mm3 (0.00-0.031); Immature Granulocyte Percent A 0.2 % (0-0.5); Lymphocytes Percent Auto 15.8 % (18.3-44.2); Mean Corpuscular HGB Conc 31.8 g/dl (32-36); Mean Corpuscular Hemoglobin 28.2 pg (26-34); Mean Corpuscular Volume 88.6 fl (80-100); Mean Platelet Volume 10.3 fl (7.4-10.4); Monocytes Absolute Auto 0.4 K/mm3 (0.1-0.6); Monocytes Percent Auto 4.6 % (2.6-8.5); Neutrophils Absolute Auto 6.5 K/mm3 (1.3-6.7); Neutrophils Percent Auto 79.1 % (45.5-73.1); Platelet Count Result 210 k/mm3 (150-375); Red Blood Count 4.93 M/mm3 (4.2-5.4); White Blood Count 8.2 K/mm3 (4.5-10.0)
[2020-06-27 16:55] LABS: Partial Thromboplastin Time 31.1 SECONDS (22.3-36.8); Prothrombin Time 13.8 Seconds (11.1-14.7)
[2020-06-27 16:56] LABS: Lactic Acid Reflex 1.4 mmol/L (0.7-2.1)
[2020-06-27 16:57] LABS: Alanine Aminotransferase 19 U/L (4-35); Albumin Level 4.6 g/dL (3.5-5.1); Alkaline Phosphatase 76 U/L (38-126); Anion Gap 9 mmol/L (8-16); Aspartate Amino Transferase 38 U/L (14-36); Blood Urea Nitrogen 21 mg/dL (7-17); Calcium 9.3 mg/dL (8.4-10.2); Carbon Dioxide 25 mmol/L (22-30); Chloride 102 mmol/L (98-107); Estimated CRCL calculation 24 ml/min; Estimated Glomerular Filt Rate 52; Glucose 105 mg/dL (65-105); Potassium 4.1 mmol/L (3.4-5.0); Sodium 136 mmol/L (137-145)
[2020-06-27] MEDS: SODIUM CHLORIDE 0.9% IV 500 ML 999 ML IV CONT (17:01)
[2020-06-27 17:54] LABS: Add Urine Microscopic? YES; Appearance Urine Clear (Clear); Bilirubin Urine Negative (Negative); Blood Urine Negative (Negative); Color Urine Yellow (Yellow); Glucose Urine UA Negative (Negative); Ketones Urine Negative (Negative); Leukocyte Esterase Ur Trace LEU/UL (Negative); Mucus Urine Rare /lpf; Nitrate Urine Negative (Negative); Protein Urine 1+ mg/dL (Negative); RBC Urine 0-2 /hpf (0-2); Specific Grav Ur 1.023 (1.001-1.035); Squamous Epithelial Cell Urine Few /hpf (Few); Urobilinogen Urine Negative mg/dL (<2.0)
[2020-06-27] MEDS: NITROFURANTOIN MONOHYD MACROCR 100 MG CAP PO (18:30)
== END 2020-06-27 18:40 | disposition home or self-care (01) ==
PROVIDERS: Emergency Provider Emergency Medicine; PCP Internal Medicine
DX: N39.0 Urinary tract infection, site not specified (principal); Z86.16 Personal history of COVID-19; I10 Essential (primary) hypertension
CPT/HCPCS: 36415; 71045; 80053; 81001; 83605; 85025; 85610; 85730; 87040; 87086; 87088; 96374; 99284; A9270; J0131; J7040

== ENCOUNTER 2024-03-14 09:36 | Emergency (ER) | payer MEDICARE, SELFPAY ==
[2024-03-14 09:41] VITALS: BP 168/84; PULSE 79; RESP 20; TEMP 36.4; O2SAT 100
[2024-03-14 10:25] LABS: Influenza A QL RT-PCR Negative (Negative); Influenza B QL RT-PCR Negative (Negative); RSV RNA, RT-PCR Negative (Negative); SARS-CoV-2 RNA PCR Positive (Negative)
--- NOTE | 2024-03-14 10:35 | ED_ITS ---
HPI - General Adult General Chief complaint: Upper Respiratory Infection Stated complaint: sick for 4 days, cough Time Seen by Provider: 03/14/24 09:44 Source: patient Mode of arrival: ambulatory Limitations: no limitations History of Present Illness HPI narrative: 83-year-old with a history of hypertension here with the complaints of cold, congestion and cough which is nonproductive for past 3 days. She denies any fever or shortness of breath. Onset (ago): day(s) (3) Severity: mild Relieving factors: none Exacerbating factors: none Related Data Home Medications Medication Instructions Recorded Confirmed ergocalciferol (vitamin D2) 1,250 1,250 mcg PO DAILY 09/26/19 09/26/19 mcg (50,000 unit) capsule (Vitamin D2) valsartan 80 1 tablet PO DAILY 09/26/19 09/26/19 mg-hydrochlorothiazide 12.5 mg tablet Allergies Allergy/AdvReac Type Severity Reaction Status Date / Time Penicillins Allergy Hives Verified 03/14/24 09:43 Review of Systems Review of Systems: All systems reviewed & are unremarkable except as noted in HPI and below Constitutional: Constitutional: Reports no additional constitutional complaints Eyes: Eyes: Reports no additional eye complaints ENT: Reports system reviewed and no additional complaints, except as documented Cardiovascular: Cardiovascular: Reports no additional cardiovascular complaints Respiratory: Respiratory: Reports as per HPI Musculoskeletal: Musculoskeletal: Reports no additional musculoskeletal complaints [facility] Past Medical History Medical History (Updated 03/14/24 @ 10:42 by Lico Márquez MD) HTN (hypertension) Surgical History Surgical History H/O: hysterectomy Social History Social History Smoking status: Never smoker Alcohol intake: never Substance use: never Gender identity (if verbalized by the patient): Female Spiritual care concerns: No Agree to blood products: Yes Exam Narrative: GENERAL: Well-appearing, well-nourished, and in no acute distress. HEAD: Normocephalic, atraumatic. EYES: PERRLA and EOMI. NECK: Supple. CHEST: Clear to auscultation. No respiratory distress. HEART: Regular rate and rhythm. No murmur heard. Normal peripheral pulses. EXTREMITIES: Normal range of motion. No edema. SKIN: Warm, dry, no rash. NEURO: No focal deficits. Alert and oriented x3. PSYCH: Normal mood and affect. Course Vital Signs Vital signs: Vital Signs Temperature 36.4 C 03/14/24 09:41 Pulse Rate 79 03/14/24 09:41 Respiratory Rate 20 03/14/24 09:41 Blood Pressure 168/84 H 03/14/24 09:41 Pulse Oximetry 100 03/14/24 09:41 Oxygen Delivery Room Air 03/14/24 09:41 Temperature 36.4 C 03/14/24 09:41 Pulse Rate 79 03/14/24 09:41 Respiratory Rate 20 03/14/24 09:41 Blood Pressure 168/84 H 03/14/24 09:41 Pulse Oximetry 100 03/14/24 09:41 Oxygen Delivery Room Air 03/14/24 09:41 Medical Decision Making MDM Narrative Medical decision making narrative: 83-year-old with a history of cold, congestion, cough which is nonproductive with no history of fever appears to be viral will do a respiratory panel. Differential Diagnosis Differential Diagnosis: Viral syndrome, bronchitis, Medical Records Medical records reviewed: Yes I reviewed the external patient's medical records. Vital Signs Vital Signs: Vital Signs Temperature 36.4 C 03/14/24 09:41 Pulse Rate 79 03/14/24 09:41 Respiratory Rate 20 03/14/24 09:41 Blood Pressure 168/84 H 03/14/24 09:41 Pulse Oximetry 100 03/14/24 09:41 Oxygen Delivery Room Air 03/14/24 09:41 Temperature 36.4 C 03/14/24 09:41 Pulse Rate 79 03/14/24 09:41 Respiratory Rate 20 03/14/24 09:41 Blood Pressure 168/84 H 03/14/24 09:41 Pulse Oximetry 100 03/14/24 09:41 Oxygen Delivery Room Air 03/14/24 09:41 Lab Data Labs: Lab Results 03/14/24 Range/Units 09:45 Influenza A (RT-PCR) Negative (Negative) Influenza B (RT-PCR) Negative (Negative) RSV (RT-PCR) Negative (Negative) SARS-CoV-2 RNA (RT-PCR) Positive A (Negative) Discharge Plan Discharge Clinical Impression: COVID, Acute viral syndrome Patient Disposition: Home, Self-Care Condition: Stable Instructions: Viral Syndrome (ED), COVID-19 (Coronavirus Disease 2019) (ED) Additional Instructions: Drink plenty of fluids, marked take Tylenol ibuprofen for body aches and few Prescriptions: No Action ergocalciferol (vitamin D2) [Vitamin D2] 1,250 mcg (50,000 unit) capsule 1,250 mcg PO DAILY valsartan-hydrochlorothiazide 80-12.5 mg tablet 1 tablet PO DAILY nitrofurantoin monohyd/m-cryst [Macrobid] 100 mg capsule 100 mg PO Q12H 5 Days Qty: 10 0RF Rx Instructions: must administer with a meal/food Follow-up/Referrals: Alice,Javy Guzman MD [Primary Care Provider] - Time of Disposition: 10:42
== END 2024-03-14 10:49 | disposition home or self-care (01) ==
PROVIDERS: Emergency Provider Family Medicine; PCP Internal Medicine
DX: U07.1 COVID-19 (principal); I10 Essential (primary) hypertension; Z90.710 Acquired absence of both cervix and uterus
CPT/HCPCS: 87637; 99283

== ENCOUNTER 2025-01-09 10:23 | Emergency (ER) | payer MEDICARE, SELFPAY ==
[2025-01-09] VITALS (23 sets, daily range): BP systolic 150–181; BP diastolic 69–126; PULSE 75; RESP 16; TEMP 36.3; O2SAT 84–100
--- NOTE | ~2025-01-09 | CT_ITS ---
EXAMINATION: CT abdomen pelvis with contrast DATE: 01/09/2025 13:22 INDICATION: Right flank pain. Right lower quadrant pain TECHNIQUE: Computed tomography (CT) of the abdomen and pelvis was performed with intravenous contrast. The dose-length product was 210.95 mGy-cm. COMPARISON: 09/26/2019 FINDINGS: Small to moderate-sized groundglass, reticular and patchy opacities in the lower lungs. Stable 10 mm cyst in the left lobe of the liver. Spleen, adrenal glands, pancreas and gallbladder are unremarkable. There is a 4.3 cm cyst in the left kidney. The kidneys are otherwise unremarkable. No hydronephrosis. No renal calculi. Abdominal aorta is not aneurysmal. Bladder is unremarkable. No enlarged lymph nodes identified in the abdomen or pelvis. Moderate amount of stool. No CT evidence for colitis. Appendix is not definitely identified. No dilated bowel loops. Degenerative change in the lumbar spine similar to the study from 2019. Minimal grade 1 interosseous of L4 on L5. IMPRESSION: 1. No CT evidence for an acute process in the abdomen or pelvis at this time. 2. Left renal cyst. 3. Stable liver cyst. 4. Small to moderate-sized groundglass, reticular and patchy opacities in the lower lungs. Differential includes atelectasis/scarring or infiltrates. If symptoms persist or worsen, consider a short-term follow-up study or additional imaging for further assessment. Reviewed, dictated and finalized at location Q. IMPRESSION: 1. No CT evidence for an acute process in the abdomen or pelvis at this time. 2. Left renal cyst. 3. Stable liver cyst. 4. Small to moderate-sized groundglass, reticular and patchy opacities in the l ower lungs. Differential includes atelectasis/scarring or infiltrates. If symptoms persist or worsen, consider a short-term follow-up study or additio nal imaging for further assessment.
--- OUTSIDE RECORDS SUMMARY | 2025-01-09 11:02 | XMS_ITS | Clinical Summary ---
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 Name Role Phone Javy Jenkins MD Primary Care Provider [phone] Allergies Active Allergy Reactions Criticality Noted Date Comments Penicillins Rash Low 10/09/2023 Social History Tobacco Use Types Packs/Day Years Used Date Smoking Tobacco: Never Smokeless Tobacco: Never Tobacco Cessation:Counseling Given: Not Answered Comments Unknown Sex and Gender Information Value Date Recorded Sex Assigned at Not on file Legal Sex Female 10:05 AM CDT Gender Identity Not on file Sexual Orientation Not on file Last Filed Vital Signs Vital Sign Reading Time Taken Comments Blood Pressure 154/70 10/09/2023 4:31 PM CDT Pulse 78 10/09/2023 10:10 AM CDT Temperature 36.6 C (97.8 F) 10/09/2023 10:10 AM CDT Respiratory Rate 18 10/09/2023 10:10 AM CDT Oxygen Saturation 95% 10/09/2023 4:31 PM CDT Inhaled Oxygen Concentration - - Weight 57.6 kg (127 lb) 10/09/2023 10:10 AM CDT Height 154.9 cm (5' 1) 10/09/2023 10:10 AM CDT Body Mass Index 24 10/09/2023 10:10 AM CDT Plan of Treatment Health Maintenance Due Date Last Done Comments Annual Medicare Wellness Visit 2003 RSV Immunization or 60+ Years (1 - 1-dose 75+ series) 2013 Zoster Vaccines (2 of 2) 03/28/2022 01/31/2022 COVID-19 Vaccine ( season) 2024 02/08/2023, 10/05/2022, 03/16/2022, Additional history exists DTaP, Tdap and Td Vaccines (2 - Td or Tdap) 01/31/2032 01/30/2022 Pneumococcal Vaccine: 50+ Years Completed 01/26/2022 Meningococcal B Vaccine Aged Out No l onger eligible based on patient's age to complete this topic Meningococcal Vaccine Aged Out No daniella gabriella eligible based on patient's age to complete this topic RSV Immunizations Under 20 Months Aged Out No longer eligible based on patient's age to complete this topic Insurance AET[employer] Care Teams Senior Sales Executive Relationship Specialty Start Date End Date Javy Jenkins MD PCP - General INTERNAL MEDICINE 10/09/23
--- OUTSIDE RECORDS SUMMARY | 2025-01-09 11:02 | XMS_ITS | Clinical Summary ---
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 Active Active Problems No known active problems Social History Tobacco Use Types Packs/Day Years Used Date Smoking Tobacco: Never Assessed Comments Unknown Sex and Gender Information Value Date Recorded Sex Assigned at Not on file Legal Sex Female 2:57 PM CDT Gender Identity Not on file Sexual Orientation Not on file Last Filed Vital Signs Vital Sign Reading Time Taken Comments Blood Pressure 112/63 09/13/2019 3:15 PM CDT Pulse 98 09/13/2019 3:15 PM CDT Temperature 36.8 C (98.2 F) 09/13/2019 3:15 PM CDT Respiratory Rate 18 09/13/2019 3:15 PM CDT Oxygen Saturation 98% 09/13/2019 3:15 PM CDT Inhaled Oxygen Concentration - - Weight - - Height - - Body Mass Index - - Plan of Treatment Health Maintenance Due Date Last Done Comments DTAP/TDAP/TD VACCINES (1 - Tdap) 1957 PNEUMOCOCCAL VACCINE 50+ YEARS (1 of 1 - PCV) 07/13/18 89 ZOSTER VACCINE (1 of 2) 1988 OSTEOPOROSIS SCREENING 2003 RSV VACCINE (60+ or ) (1 - 1-dose 75+ series) 2013 INFLUENZA VACCINE (#1) 2024 Insurance MEDICARE PART A AND B [facility]
--- NOTE | 2025-01-09 11:45 | ED.BACK ---
HPI - Back Pain/Injury General Chief Complaint: Back Pain/Injury Stated Complaint: right flank pain Time Seen by Provider: 01/09/25 11:09 Source: patient Mode of arrival: ambulatory Limitations: no limitations History of Present Illness HPI Narrative: patient drove herself to the emergency room complaining of right flank, right lower back sharp pain radiating to right lower quadrant and right thigh laterally started last night after to our sitting on a chair. She had trouble to stand up because of pain. Did not take any pain medication at home, declined to take any pain medication in the emergency room, did not take her blood pressure medicine prior to arrival. She denies any fever, nausea, vomiting, diarrhea, constipation, headache, chest pain or shortness of breath or focal neuro deficit. Related Data Home Medications ?Medication ?Instructions ?Recorded ?Confirmed ?Last Taken ?Type ergocalciferol (vitamin D2) 1,250 1,250 mcg PO DAILY 09/26/19 09/26/19 09/26/19 09:00 History mcg (50,000 unit) capsule (Vitamin D2) valsartan 80 1 tablet PO DAILY 09/26/19 09/26/19 09/26/19 09:00 History mg-hydrochlorothiazide 12.5 mg tablet Allergies Allergy/AdvReac Type Severity Reaction Status Date / Time Penicillins Allergy Hives Verified 01/09/25 10:40 Review of Systems Review of Systems: All systems reviewed & are unremarkable except as noted in HPI and below PMFSH Past Medical History Medical History (Updated 01/09/25 @ 15:10 by Fabiola Chiang MD) HTN (hypertension) Surgical History Surgical History H/O: hysterectomy Social History Social History Smoking status: Never smoker Alcohol intake: never Substance use: never Gender identity (if verbalized by the patient): Female Spiritual care concerns: No Agree to blood products: Yes Exam Narrative: General appearance: Well-developed, well-nourished Skin: Normal color Head: Normocephalic, nontraumatic Eyes: Clear conjunctiva ENT: Oropharynx normal, ears normal, nose normal Neck: Supple, nontender Chest and respiratory: Airway patent, no respiratory distress, no accessory muscle use Heart: Regular rate/rhythm Abdomen: Soft, mild right lower quadrant tenderness, no organomegaly, quiet bowel sounds Vascular: Normal peripheral pulses, normal capillary refill. Musculoskeletal: Mild tenderness right flank, right lower back and right lower quadrant . 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 Knee Blood workup today includes CBC, CMP, lipase showed Urinalysis showed CT abdomen and pelvis with IV contrast showed no significant abnormalities Musculoskeletal pain is my concern, questionable urinary tract infection Diagnosis lower back muscular pain, urinary tract infection, the pt was discharged to home.the pt,s condition upon discharge was fair,education was provided to the pt in reference to the final impression,discharge study results,treatment,prognosis and need for follow up . Differential Diagnosis Differential diagnosis: Likely other ( as above) Medical Records Attestation: I reviewed the patient's medical records. Lab Data Attestation: I reviewed the patient's lab results. 01/09/25 12:13 01/09/25 12:13 Labs: Lab Results 01/09/25 Range/Units 12:13 WBC 5.0 (4.5-10.0) K/mm3 RBC 4.29 (4.2-5.4) M/mm3 Hgb 11.7 L (12.0-15.0) g/dL Hct 38.9 (37.0-47.0) % MCV 90.7 (80-100) fl MCH 27.3 (26-34) pg MCHC 30.1 L (32-36) g/dl RDW 13.2 (11.5-14.5) % Plt Count 204 (150-375) k/mm3 MPV 9.8 (7.4-10.4) fl Immature Gran % (Auto) 0.2 (0-0.5) % Neut % (Auto) 48.4 (45.5-73.1) % Lymph % (Auto) 38.8 (18.3-44.2) % [place] % (Auto) 8.8 H (2.6-8.5) % Eos % (Auto) 3.2 (0-4.4) % Baso % (Auto) 0.6 (0.2-1.2) % Lymph # (Auto) 1.94 (0.9-3.2) K/mm3 [place] # (Auto) 0.4 (0.1-0.6) K/mm3 Eos # (Auto) 0.2 (0-0.3) K/mm3 Baso # (Auto) 0.0 (0.0-0.1) K/mm3 Abs Immat Gran (auto) 0.01 (0.00-0.031) K/mm3 Absolute Neuts (auto) 2.4 (1.3-6.7) K/mm3 Absolute Nucleated RBC 0.000 (0.0-0.012) K/mm3 Nucleated RBC % 0.0 (0.0-0.2) % Sodium 139 (137-145) mmol/L Potassium 5.0 (3.4-5.0) mmol/L Chloride 106 (98-107) mmol/L Carbon Dioxide 25 (22-30) mmol/L Anion Gap 8 (4-12) mmol/L BUN 23 H (7-17) mg/dL Creatinine 1.11 H (0.7-1.0) mg/dL Estim Creat Clear Calc 24 ml/min Estimated GFR 47 L (59 - ) Glucose 91 (65-110) mg/dL Calcium 9.4 (8.4-10.2) mg/dL Total Bilirubin 0.9 (0.2-1.3) mg/dL AST 33 (14-36) U/L ALT 16 (6-35) U/L Alkaline Phosphatase 70 (38-126) U/L Total Protein 7.7 (6.3-8.2) g/dL Albumin 4.3 (3.5-5.1) g/dL Lipase 101 (23-300) U/L Urine Color Yellow (Yellow) Urine Appearance Cloudy H (Clear) Urine pH 7.5 (5.0-9.0) Ur Specific [place] 1.014 (1.001-1.035) Urine Protein Negative (Negative) mg/dL Urine Glucose (UA) Negative (Negative) mg/dL Urine Ketones Negative (Negative) mg/dL Ur Blood (Man) Negative (Negative) Urine Nitrate Negative (Negative) Urine Bilirubin Negative (Negative) Urine Urobilinogen 0.2 (<2.0) mg/dL Add Ur Microanalysis Reviewed Leukocyte Esterase Rfl 1+ H (Negative) JUDY/UL Urine RBC 0-2 (0-2) /hpf Urine WBC 0-5 (0-3) /hpf Ur Squamous Epith Cells None seen (Few) /hpf Urine Bacteria None seen /hpf Urine Casts 0-2 Imaging Data Radiologist's impression: Impressions Abdomen/Pelvis CT 01/09/25 13:33 IMPRESSION: 1. No CT evidence for an acute process in the abdomen or pelvis at this time. 2. Left renal cyst. 3. Stable liver cyst. 4. Small to moderate-sized groundglass, reticular and patchy opacities in the lower lungs. Differential includes atelectasis/scarring or infiltrates. If symptoms persist or worsen, consider a short-term follow-up study or additional imaging for further assessment. Critical Care Time Critical Care Time Critical Care Time: No Discharge Plan Discharge Clinical Impression: Lower back pain, Urinary tract infection Patient Disposition: Home Condition: Stable Instructions: Antibiotic Form, Urinary Tract Infection in Women (DC), Acute Low Back Pain (ED) Additional Instructions: Return if symptoms are worsening , call your family physician for appointment, take Tylenol as as needed for aches and pain, continue home medications. Patient Language: Tajik Prescriptions: New metaxalone 800 mg tablet 800 mg PO TID Qty: 20 0RF diclofenac potassium 50 mg tablet 50 mg PO TID PRN (Reason: pain) Qty: 15 0RF nitrofurantoin monohyd/m-cryst [Macrobid] 100 mg capsule 100 mg PO Q12H 5 Days Qty: 10 0RF Rx Instructions: must administer with a meal/food No Action ergocalciferol (vitamin D2) [Vitamin D2] 1,250 mcg (50,000 unit) capsule 1,250 mcg PO DAILY valsartan-hydrochlorothiazide 80-12.5 mg tablet 1 tablet PO DAILY nitrofurantoin monohyd/m-cryst [Macrobid] 100 mg capsule 100 mg PO Q12H 5 Days Qty: 10 0RF Rx Instructions: must administer with a meal/food Follow-up/Referrals: Alice,Javy Guzman MD [Primary Care Provider, Unknown]
[2025-01-09 12:19] LABS: Hematocrit 38.9 % (37.0-47.0); Hemoglobin 11.7 g/dL (12.0-15.0); Immature Granulocyte Percent A 0.2 % (0-0.5); Lymphocytes Absolute Auto 1.94 K/mm3 (0.9-3.2); Mean Corpuscular HGB Conc 30.1 g/dl (32-36); Mean Corpuscular Hemoglobin 27.3 pg (26-34); Mean Corpuscular Volume 90.7 fl (80-100); Nucleated Red Blood Cells Absolute Auto 0.000 K/mm3 (0.0-0.012); Nucleated Red Blood Cells Perc 0.0 % (0.0-0.2); Platelet Count Result 204 k/mm3 (150-375); Red Blood Count 4.29 M/mm3 (4.2-5.4); White Blood Count 5.0 K/mm3 (4.5-10.0)
[2025-01-09] MEDS: VALSARTAN 80 MG TABLET PO (12:26)
[2025-01-09 12:32] LABS: Add Urine Microscopic? YES; Appearance Urine Cloudy (Clear); Glucose Urine UA Negative (Negative); Leukocyte Esterase Ur 1+ LEU/UL (Negative); Need Manual Microscopic Reviewed; Nitrate Urine Negative (Negative); Non Pathogenic Casts 0-2; Specific Grav Ur 1.014 (1.001-1.035)
[2025-01-09 12:47] LABS: Alanine Aminotransferase 16 U/L (6-35); Albumin Level 4.3 g/dL (3.5-5.1); Alkaline Phosphatase 70 U/L (38-126); Anion Gap 8 mmol/L (4-12); Aspartate Amino Transferase 33 U/L (14-36); Bilirubin,Total 0.9 mg/dL (0.2-1.3); Blood Urea Nitrogen 23 mg/dL (7-17); Calcium 9.4 mg/dL (8.4-10.2); Carbon Dioxide 25 mmol/L (22-30); Chloride 106 mmol/L (98-107); Estimated CRCL calculation 24 ml/min; Estimated Glomerular Filt Rate 47; Glucose 91 mg/dL (65-110); Lipase 101 U/L (23-300); Potassium 5.0 mmol/L (3.4-5.0); Sodium 139 mmol/L (137-145); Total Protein 7.7 g/dL (6.3-8.2)
--- OUTSIDE RECORDS SUMMARY | 2025-01-09 12:47 | XMS_ITS | Clinical Summary ---
Author Organization 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
--- OUTSIDE RECORDS SUMMARY | 2025-01-09 12:47 | XMS_ITS | Encounter Summary ---
Author Organization [facility] Address [address] [place] [address] Care Team Providers Care Skeiner Name Role Phone Unavailable Primary Care Provider Unavailabl e Encounter Details Date Type Department Care Team (Late st Contact Info) Description 09/14/2019 Lab Requisition [facility] [address] [place] [address] Social History Tobacco Use Types Packs/Day Years Used Date Smoking Tobacco: Never Assessed Comments Unknown Sex and Gender Information Value Date Recorded Sex Assigned at Not on file Legal Sex Female 12:41 PM CDT Gender Identity Not on file Sexual Orientation Not on file documented as of this encounter Plan of Treatment Not on file documented as of this encounter Procedures Procedure Name Priority Date/Time Associated Diagnosis Comments SARS-COV-2 (COVID-19) IN HOUSE Routine 09/13/2019 3:26 PM CDT documented in this encounter Results * SARS-COV-2 (COVID-19) IN HOUSE (09/13/2019 3:26 PM CDT) COVID-19 PCR Not detected Not detected, Invalid 09/14/2019 11:16 PM CDT [facility] Microbiology SPECIMEN FROM NASOPHARYNGEAL STRUCTURE / Unknown Collection / Unknown 09/13/2019 3:26 PM CDT 09/14/2019 12:42 PM CDT Narrative [facility] - 09/14/2019 11:16 PM CDT This Real Time RT-PCR assay was developed and its performance characteristics determined by [facility]. This test has been authorized by the Food and Drug administration (FDA)under an Emergency Use Authorization (EUA). This test has been validated in accordance with the FDA's guidance document Policy for Diagnostic Testing in Laboratories Certified to perform High Complexity Testing under CLIA prior to Emergency Use Authorization for Coronavirus Disease-2019 during the Public Health Emergency issued on July 20, 2019. FDA independent review of this validation is pending. This test is only authorized for the duration of time the declaration that circumstances exist justifying the authorization of emergency use of in vitro diagnostic tests for detection of SARS-CoV-2 virus and/or diagnosis of COVID-19 infection under section 564(b)(1) of the Act, 21 U.S.C 360bbb-3 (b)(1), unless the authorization is terminated or revoked sooner. us LAB - MICROBIOLOGY ORDERABLES Fi nal Result [facility] [address] [place], [place] [address], [facility] [phone] documented in this encounter Visit Diagnoses Not on filedocumented in this encounter
--- OUTSIDE RECORDS SUMMARY | 2025-01-09 12:47 | XMS_ITS | Clinical Summary ---
Author Organization [facility] Address [address] [place] [id number] Care Team Providers Care Boxing Trainer Name Role Phone Javy Jenkins MD Primary Care Provider [phone] Allergies Active Allergy Reactions Criticality Noted Date [...] complete this topic Insurance [employer] Care Teams Boxing Trainer Relationship Specialty Start Date End Date Javy Jenkins MD PCP - General INTERNAL MEDICINE 10/09/23
--- OUTSIDE RECORDS SUMMARY | 2025-01-09 12:47 | XMS_ITS | Clinical Summary ---
Author Organization [facility] Address [address] [place] [address] Care Team Providers Care Tubular Stock Glass Bulb Machine Former Name Role Phone Unavailable Primary Care Provider Unavailabl e Source Comments [facility],non-owned Affiliates and Associated Physician Practices is amultiple site organization consisting of ambulatory clinics and hospital sitesin [place], [place], [place] and [place]. This disclosure is being madepursuant to the Care Everywhere program and may not contain all information available regarding this patient. Last updated 18.[facility] Social History Tobacco Use Types Packs/Day Years Used Date Smoking Tobacco: Never Assessed Comments Unknown Sex and Gender Information Value Date Recorded Sex Assigned at Not on file Legal Sex Female 12:41 PM CDT Gender Identity Not on file Sexual Orientation Not on file Plan of Treatment Health Maintenance Due Date Last Done Comments BONE DENSITY TESTING 1938 DTAP/TDAP/TD VACCINES (1 - Tdap) 1957 PNEUMOCOCCAL VACCINE 50+ (1 of 1 - PCV) 1988 ZOSTER VACCINE (1 of 2) 1988 Respiratory Syncytial Virus (RSV) Vaccine Pt: or over 60 yrs (1 - 1-dose 75+ series) 2013 COVID-19 VACCINE ( - 2023-2 5 season) 2024 DEPRESSION SCREENING 05/22/2024 INFLUENZA VACCINE (#1) 2025 HEPATITIS B VACCINE Aged Out No longe r eligible based on patient's age to complete this topic HIB VACCINE Aged Out No longer eligi ble based on patient's age to complete this topic HPV VACCINE Aged Out No longer eligi ble based on patient's age to complete this topic MENINGOCOCCAL (Group B) VACC INE SHARED DECISION-MAKING Aged Out No longer eligibl e based on patient's age to complete this topic MENINGOCOCCAL GROUPS A/C/Y/W VACCINE Aged Out No longer eligible b ased on patient's age to complete this topic
== END 2025-01-09 15:34 | disposition home or self-care (01) ==
PROVIDERS: Emergency Provider Emergency Medicine; PCP Internal Medicine
DX: N39.0 Urinary tract infection, site not specified (principal); M54.50 Low back pain, unspecified; I10 Essential (primary) hypertension; Z90.710 Acquired absence of both cervix and uterus; N28.1 Cyst of kidney, acquired; K76.89 Other specified diseases of liver
CPT/HCPCS: 36415; 74177; 80053; 81001; 83690; 85025; 87086; 99284; A9270; Q9967

== ENCOUNTER 2025-05-16 07:29 | Outpatient (CLI) | payer MEDICARE, SELFPAY ==
--- NOTE | ~2025-05-16 | US_ITS ---
US retroperitoneal comp 05/16/2025 07:50 Procedure: Realtime transabdominal ultrasound of the kidneys and bladder. Indication: Chronic kidney disease Comparison: No prior studies for comparison. Findings: Renal echotexture is normal bilaterally without contour deforming mass or renal calculus. Mild right hydronephrosis. The right kidney measures 7.7 cm and left kidney measures 9.1 cm. There is a left renal cyst measuring 5 cm. Bladder within normal limits. Impression: 1: Left renal cyst measuring 5 cm. 2: Mild right hydronephrosis. Reviewed, dictated and finalized at location O. STITCH FRONT MAKER Impression: 1: Left renal cyst measuring 5 cm. 2: Mild right hydronephrosis.
== END 2025-05-16 07:30 | disposition home or self-care (01) ==
LOC: MICIMG 07:29
PROVIDERS: PCP Internal Medicine; Visit Provider Specialist
DX: N18.31 Chronic kidney disease, stage 3a (principal); N28.1 Cyst of kidney, acquired
CPT/HCPCS: 76770